=== PATIENT | male | born 1995 | race Two or more races ===

== ENCOUNTER 2020-04-17 03:07 | Emergency (ER) | payer OTHER, MEDICAID ==
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
--- NOTE | 2020-04-17 08:15 | CR ---
Right shoulder: 3 views of the right shoulder were obtained. Comparison: No prior shoulder study. Glenohumeral joint and acromioclavicular joint appears within normal limits. No fracture, dislocation or other bony abnormality is seen. Impression: 1. No abnormality is identified on right shoulder study. Diagnostic code #1 This report was dictated in MDT
== END 2020-04-17 10:47 | disposition home or self-care (01) ==
LOC: JD.ED 03:07
DX: S46.911A Strain of unspecified muscle, fascia and tendon at shoulder and upper arm level, right arm, initial encounter (principal); S29.012A Strain of muscle and tendon of back wall of thorax, initial encounter; F17.210 Nicotine dependence, cigarettes, uncomplicated; V89.2XXA Person injured in unspecified motor-vehicle accident, traffic, initial encounter; Y92.410 Unspecified street and highway as the place of occurrence of the external cause
CPT/HCPCS: 73030-26-RT; 73030-RT; 99284-25